=== PATIENT | female | born 1970 | race Caucasian/White ===

== ENCOUNTER 2017-12-03 17:39 | Emergency (ER) | payer OTHER ==
[~2017-12-03] VITALS: Ht 165.1 cm; Wt 131.5 kg
[2017-12-03 18:02] VITALS: Ht 165.1 cm; Wt 131.5 kg
[2017-12-03 19:20] VITALS: BP 127/66
== END 2017-12-03 19:20 | disposition home or self-care (01) ==
LOC: ED 17:39
DX: R19.7 Diarrhea, unspecified (principal); R03.0 Elevated blood-pressure reading, without diagnosis of hypertension

== ENCOUNTER 2019-12-17 19:29 | Emergency (ER) | payer OTHER ==
[~2019-12-17] VITALS: Ht 170.2 cm; Wt 143.8 kg
[2019-12-17 19:39] VITALS: Ht 170.2 cm; Wt 143.8 kg
[2019-12-17 22:00] VITALS: BP 136/85
== END 2019-12-17 22:00 | disposition home or self-care (01) ==
LOC: ED 19:29
DX: M25.562 Pain in left knee (principal); Z90.711 Acquired absence of uterus with remaining cervical stump; E05.90 Thyrotoxicosis, unspecified without thyrotoxic crisis or storm
CPT/HCPCS: J1885; Q0092